=== PATIENT | male | born 2000 | race Caucasian/White ===

== ENCOUNTER 2023-03-18 16:02 | Emergency (ER) | payer BC ==
[2023-03-18] MEDS ORDERED: lidocaine 1% 20 ML MDV SUBQ ONE (16:40)
[2023-03-18] MEDS ORDERED: TETANUS/DIPHTHERIA/PERTUSSIS 0.5 ML SYRINGE IM ONE (16:49)
[2023-03-18] MEDS ORDERED: BACITRACIN ZINC OINT 1 PACKET TOP STA (17:20)
--- NOTE | 2023-03-18 17:23 | ED Physician Documentation ---
PD HPI UPPER EXT INJURY - Stated complaint Stated Complaint: LT HAND INJURY - Chief complaint Chief Complaint: Laceration - History obtained from History obtained from: Patient - Additonal information Additional information: The patient presents to the emergency department with chief complaint of laceration to left hand. He states he was messing around with a razor blade, which he was holding in his right hand, when the blade slipped and lacerated his left hand at the base of his small finger on the palmar aspect. Patient states the injury happened just prior to coming to the ED. He denies any other injuries. He states he feels as though his finger has full strength. Last tetanus shot was 8 or 9 years ago. No other complaints at this time. PD PAST MEDICAL HISTORY - Past Surgical History Past Surgical History: No - Present Medications Home Medications: Ambulatory Orders Medication Instructions Recorded Confirmed No Known Home Medications 08/19/13 07/26/15 - Allergies Allergies/Adverse Reactions: Allergies Allergy/AdvReac Type Severity Reaction Status Date / Time No Known Drug Allergies Allergy Verified 03/18/23 16:12 - Social History Does the pt smoke?: No Smoking Status: Never smoker Does the pt drink ETOH?: No Does the pt have substance abuse?: No - Immunizations Immunizations are current?: Yes - POLST Patient has POLST: No PD ED PE NORMAL - Vitals Vital signs reviewed: Yes - General General: Alert and oriented X 3, No acute distress, Well developed/nourished - HEENT HEENT: Atraumatic, PERRL, EOMI, Moist mucous membranes - Neck Neck: Supple, no meningeal sign - Cardiac Cardiac: Strong equal pulses - Respiratory Respiratory: No respiratory distress - Derm Derm: Normal color, Warm and dry, No rash, Other (3.5 cm laceration extending around the base of the left small finger aspect. Laceration extends into adipose tissue, but no tendon visualized in the depth of the wound. No foreign bodies.) - Extremities Extremities: No deformity, Other (Full range of motion left small finger. Intact flexor strength at all joints to resistance.) - Neuro Neuro: Alert and oriented X 3, No motor deficit, No sensory deficit - Psych Psych: Normal mood, Normal affect Results - Vitals Vitals: Vital Signs - 24 hr 03/18/23 16:09 Temperature 35.9 C L Heart Rate 115 H Respiratory 18 Rate Blood Pressure 159/97 H O2 Saturation 99 Oxygen O2 Source Room air Procedures - Laceration (location) Left small finger/left hand Length in cm: 3.5 Wound type: Linear, Into subcut fat, Clean Neurovascular status: Sensory intact, Motor intact, Vascular intact Tendon involvement: Tendon intact Anesthesia: Lidocaine 1% Wound preparation: Hibiclens, Irrigated copiously NS, Wound explored, To the base Deep layer closure: # sutures - enter number Skin layer closure: Nylon, Interrupted, Size #-0 - enter number (4.0), Sutures - enter # (8) Other: Patient tolerated well, No complications, Neurovascular intact, Dressing applied, Tetanus booster given PD Medical Decision Making - ED course Complexity details: considered differential, d/w patient, d/w family ED course: The patient's wound was repaired as above, and his tetanus was updated. We have discussed wound care at home, the timeline for suture removal, and the usual indications for return to the emergency department sooner. Departure - Departure Disposition: 01 Home, Self Care Clinical Impression: Laceration Condition: Stable Instructions: ED Laceration Hand Comments: Your laceration has been repaired with 8 synthetic sutures today. The sutures will not dissolve on their own and will need to be removed by medical professional in 7 days. In the meantime, you should keep your wound clean and generally dry. You may let water and soap run over the wound but please do not rub, scrub, or immerse the wound until the sutures are out. This is to avoid infection. If you begin to notice redness or swelling spreading progressively away from the wound, or if your wound was dry and scabbed, but splits open and begins to appear "mushy" or draining pus, you should have the wound rechecked. Please avoid any high friction or high tension activities involving that area of your hand, otherwise you may end up tearing the sutures out and reopening the wound. Your tetanus has been updated today. You will be due for your next tetanus shot in 10 years.
[2023-03-18] MEDS ORDERED: TETANUS/DIPHTHERIA TOXOID 0.5 ML SYRINGE IM ONE (17:31)
[2023-03-18 17:57] VITALS: BP 138/89
== END 2023-03-18 17:56 | disposition home or self-care (01) ==
LOC: ED 16:02
DX: S61.412A Laceration without foreign body of left hand, initial encounter (principal); W26.0XXA Contact with knife, initial encounter; Z23 Encounter for immunization
CPT/HCPCS: 12002; 90471; 90715; 99283; A9270